=== PATIENT | male | born 1960 | race Hispanic/Latino ===

== ENCOUNTER 2024-06-18 12:34 | Emergency (ER) | payer SELFPAY ==
--- NOTE | 2024-06-18 13:16 | RAD REPORT ---
EXAMINATION: ONE VIEW CHEST XR CLINICAL INDICATION: dizziness TECHNIQUE: Frontal chest projection is submitted. Examination is limited by patient positioning and t echnique. COMPARISON: No prior exam. FINDINGS: The lungs are well inflated and clear. The heart is normal in size. No displaced fractures identified . IMPRESSION: No acute intrathoracic abnormalities.
--- NOTE | 2024-06-18 13:16 | RAD REPORT ---
EXAM: CT brain without contrast HISTORY: fall;Dizziness COMPARISON: None TECHNIQUE: Multiple contiguous axial images were obtained and a CT of the brain without contrast. Sag ittal and coronal reformats were performed. One or more of the following dose reduction techniques were used: Automated exposure control, adjust ment of the mA and/or kV according to patient size, and/or iterative reconstruction. FINDINGS: No evidence of hydrocephalus, intracranial hemorrhage, or extra-axial fluid collection. Mild brain atrophy with mild periventricular and deep white matter chronic microvascular ischemic ch anges present. No evidence of midline shift or areas of brain edema. The calvarium is intact. The visualized paranasal sinuses and mastoid air cells are essentially clear . IMPRESSION: No evidence of acute intracranial abnormality.
[2024-06-18 13:30] LABS: Absolute Basophils 0.1 K/uL (0-0.5); Absolute Eosinophils 0.1 K/uL (0-0.5); Absolute Lymphocytes (CBC) 1.4 K/uL (0.7-4.9); Absolute Monocytes 0.5 K/uL (0.1-1.3); Basophils % 1.3 % (0-1.3); Eosinophils % 1.7 % (0-4.4); Hematocrit 47.6 % (39.6-49.0); Hemoglobin 16.1 g/dL (13.6-17.9); Lymphocytes % 23.3 % (15.3-44.8); MCH 31.4 pg (27.0-35.0); MCHC 33.8 g/dL (32.0-36.0); MPV 8.1 fL (7.6-11.3); Monocytes % 7.9 % (3.3-12.3); Neutrophils % 65.8 % (41.7-73.7); Platelets 221 thou/uL (152-406); RBC Red Blood Cell Count 5.12 M/uL (4.33-5.43); Red Cell Distribution Width 13.2 % (12.1-15.2)
[2024-06-18 13:34] LABS: PT Prothrombin Time 11.3 SECONDS (9.4-12.5); PTT, Activated Partial Thromb 37.7 SECONDS (24.3-36.9); Protime INR 1.01
[2024-06-18 13:43] LABS: Specific Gravity 1.017 (1.005-1.030); Urine Bilirubin NEGATIVE (Negative); Urine Blood Negative (Negative); Urine Clarity Clear (Clear); Urine Color Light-Yellow (Yellow); Urine Glucose NEGATIVE (Negative); Urine Ketones NEGATIVE (Negative); Urine Microscopic Reflex YN NO UMIC; Urine Nitrite NEGATIVE (Negative); Urine Protein NEGATIVE (Negative); Urine Urobilinogen Normal (Normal)
[2024-06-18 13:47] LABS: ALT/SGPT 52 U/L (16-61); AST/SGOT 29 U/L (15-37); Albumin 3.9 g/dL (3.4-5.0); Albumin/Globulin Ratio 1.1 (1.1-1.8); Alkaline Phosphatase 76 U/L (45-117); Anion Gap 7.3 mEq/L (5.0-15.0); BUN Blood Urea Nitrogen 15 mg/dL (7-18); Bicarbonate 28 mEq/L (21-32); Bilirubin Total 0.5 mg/dL (0.2-1.0); Globulin 3.6 g/dL (2.3-3.5); Glomerular Filtration Rate 72 ml/min (=/>90); Glucose Level 100 mg/dL (74-106); Magnesium 2.3 mg/dL (1.6-2.4); Potassium 4.3 mEq/L (3.5-5.1); Protein, Total 7.5 g/dL (6.4-8.2); Sodium Level 140 mEq/L (136-145)
[2024-06-18 13:48] LABS: Bilirubin Direct < 0.2 mg/dL (0-0.2); Bilirubin Indirect, Calculated 0.3 mg/dL (0.2-0.8)
--- NOTE | 2024-06-18 15:01 | ER ---
Nurse's Notes [facility] Name: Fer Amezcua Age: 63 yrs Sex: Male : 1960 Arrival Date: 06/18/2024 Time: 12:34 Bed 9 Private MD: Diagnosis: Dizziness, headache resolved Presentation: 06/18 12:51 Chief complaint: Patient states: HEADACHE AND DIZZINESS X2 DAYS. PT ALSO REPORTS cm10 INTERMITTENT BLURRED VISION FOR 2 DAYS. PT STATES THAT HE HAD A FALL LAST WEEK AND "I FELL HARD, BUT I DIDN'T HIT MY HEAD.". Coronavirus screen: Client denies travel out of the [place] in the last 14 days. Ebola Screen: Patient denies travel to an Ebola-affected area in the 21 days before illness onset. Initial Sepsis Screen: Does the patient meet any 2 criteria? No. Patient's initial sepsis screen is negative. Does the patient have a suspected source of infection? No. Patient's initial sepsis screen is negative. Risk Assessment: Do you want to hurt yourself or someone else? Patient reports no desire to harm self or others. Onset of symptoms was June 16, 2024. 12:51 Method Of Arrival: Ambulatory cm10 12:51 Acuity: OMER 3 cm10 Triage Assessment: 12:54 Headache History: Denies prior headaches. General: Appears in no apparent distress. cm10 comfortable, Behavior is calm, cooperative. Pain: Complains of pain in head Pain does not radiate. Pain currently is 3 out of 10 on a pain scale. Quality of pain is described as DISCOMFORT Pain began 2-3 days ago. Also complains of DIZZINESS AND BLURRED VISION. Neuro: No deficits noted. Level of Consciousness is awake, alert, obeys commands, Oriented to person, place, time, situation, Appropriate for age Reports blurred vision dizziness, headache. Respiratory: No deficits noted. Airway is patent Respiratory effort is even, unlabored, Respiratory pattern is regular, symmetrical. Historical: - Allergies: 12:52 No Known Allergies; cm10 - Home Meds: 12:52 Simvastatin Oral [Active]; terazosin oral [Active]; cm10 - PMHx: 12:52 Hypercholesterolemia; Hypertensive disorder; cm10 - Immunization history:: Adult Immunizations up to date. - Infectious Disease History:: Denies. - Social history:: Smoking status: unknown. Screenin:01 [facility] ED Fall Risk Assessment (Adult) History of falling in the last 3 months, ss including since admission No falls in past 3 months (0 pts) Confusion or Disorientation No (0 pts) Intoxicated or Sedated No (0 pts) Impaired Gait No (0 pts) Mobility Assist Device Used No (0 pt) Altered Elimination No (0 pt) Score/Fall Risk Level 0 - 2 = Low Risk Oriented to surroundings, Maintained a safe environment. Abuse screen: Denies threats or abuse. Denies injuries from another. Nutritional screening: No deficits noted. Tuberculosis screening: Never had TB. Assessment: 15:01 General: Appears in no apparent distress. comfortable, Behavior is calm, cooperative. ss Pain: Denies pain. Neuro: Level of Consciousness is awake, alert, obeys commands, Oriented to person, place, time, situation. Respiratory: Airway is patent Respiratory effort is even, unlabored, Respiratory pattern is regular, symmetrical. GI: Patient currently denies diarrhea, nausea, vomiting. Derm: Skin is intact, is healthy with good turgor, Skin is pink, warm \\T\\ dry. normal. 15:17 Reassessment: Patient and/or family updated on plan of care and expected duration. Pain ss level reassessed. Patient is alert, oriented x 3, equal unlabored respirations, skin warm/dry/pink. Vital Signs: 12:51 BP 178 / 97; Pulse 60; Resp 15; Temp 97.5(TE); Pulse Ox 95% on R/A; Weight 81.65 kg; cm10 Height 5 ft. 7 in. ; Pain 3/10; 15:02 BP 157 / 88 Sitting; Pulse 49; ss 15:02 BP 176 / 92 Standing; Pulse 50; ss 12:51 Body Mass Index 28.19 (81.65 kg, 170.18 cm) cm10 12:51 Pain Scale: Adult cm10 ED Course: 12:38 Patient arrived in ED. mr 12:39 Michelle Balbuena MD is Attending Physician. sp3 12:52 Triage completed. cm10 12:55 Arm band placed on right wrist. Patient placed in waiting room. cm10 13:06 CT Head Brain wo Cont In Process Unspecified. EDMS 13:12 Chest Single View XRAY In Process Unspecified. EDMS 13:15 Missed attempt(s): 20 gauge in right antecubital area. Bleeding controlled, band aid bc6 applied, catheter tip intact. 13:23 Basic Metabolic Panel Sent. bc6 13:23 CBC with Diff Sent. bc6 13:23 Hepatic Function Sent. bc6 13:23 Magnesium Sent. bc6 13:23 Protime (+inr) Sent. bc6 13:23 Ptt, Activated Sent. bc6 13:23 Troponin High Sensitivity Sent. bc6 13:23 Missed attempt(s): 20 gauge in left antecubital area. Bleeding controlled, band aid bc6 applied, catheter tip intact. 13:24 Initial lab(s) drawn, by fl, sent to lab. bc6 13:35 Urinalysis w/ reflexes Sent. bc6 13:35 Urine collected: clean catch specimen. bc6 13:52 Desi Jaime, RN is Primary Nurse. ss 15:01 Patient has correct armband on for positive identification. Placed in gown. Bed in low ss position. 15:01 No provider procedures requiring assistance completed. ss 15:17 Patient did not have IV access during this emergency room visit. ss Administered Medications: No medications were administered Medication: 15:01 VIS not applicable for this client. ss Outcome: 15:00 Discharge ordered by . sp3 15:17 Discharged to home ambulatory, 15:17 Condition: good 15:17 Discharge instructions given to patient, family, Instructed on discharge instructions, follow up and referral plans. Demonstrated understanding of instructions, follow-up care, 15:18 Patient left the ED. ss Signatures: Dispatcher [employer] [facility] Hollie Cedillo, Reg Reg mr Desi Jaime, RN RN Michelle Balbuena MD MD sp3 Simran Gordon 6 Casie Haro, NATHANAEL RN cm10
--- NOTE | 2024-06-18 15:01 | EDPHYS ---
Physician Documentation [facility] Name: Fer Amezcua Age: 63 yrs Sex: Male : 1960 Arrival Date: 06/18/2024 Time: 12:34 Bed 9 Private MD: ED Physician Michelle Balbuena HPI: 06/18 14:57 This 63 yrs old Male presents to ER via Ambulatory with complaints of sp3 Headache, Dizziness. 14:57 63-year-old male with history of hypertension, hyperlipidemia presents to the ED with sp3 chief complaint now resolved headache and dizziness which she states has been going on for the last week. It is progressively gotten better and has no symptoms however he wanted to "get checked out". He denies any trauma though he states that the dizziness made him fall "hard" but caught himself with his hands. He denies any prodromal event before or any subsequent symptoms other than the headache. Denies ever having fever, facial pain, neck pain, focal neurological deficit, chest pain, shortness breath, abdominal pain, vomit, diarrhea, syncope, near syncope, rash, bleeding or any other signs or symptoms on ROS at this time.. Historical: - Allergies: 12:52 No Known Allergies; cm10 - Home Meds: 12:52 Simvastatin Oral [Active]; terazosin oral [Active]; cm10 - PMHx: 12:52 Hypercholesterolemia; Hypertensive disorder; cm10 - Immunization history:: Adult Immunizations up to date. - Infectious Disease History:: Denies. - Social history:: Smoking status: unknown. ROS: 14:58 Constitutional: Negative for fever, chills, and weight loss, Eyes: Negative for injury, sp3 pain, redness, and discharge, ENT: Negative for injury, pain, and discharge, Neck: Negative for injury, pain, and swelling, Cardiovascular: Negative for chest pain, palpitations, and edema, Respiratory: Negative for shortness of breath, cough, wheezing, and pleuritic chest pain, Abdomen/GI: Negative for abdominal pain, nausea, vomiting, diarrhea, and constipation, Back: Negative for injury and pain, MS/Extremity: Negative for injury and deformity, Skin: Negative for injury, rash, and discoloration, Psych: Negative for depression, anxiety, suicide ideation, homicidal ideation, and hallucinations, Allergy/Immunology: Negative for hives, rash, and allergies, Endocrine: Negative for neck swelling, polydipsia, polyuria, polyphagia, and marked weight changes, Hematologic/Lymphatic: Negative for swollen nodes, abnormal bleeding, and unusual bruising, 14:58 All other systems are negative, Exam: 14:58 Constitutional: This is a well developed, well nourished patient who is awake, alert, sp3 and in no acute distress. Head/Face: Normocephalic, atraumatic. Eyes: Pupils equal round and reactive to light, extra-ocular motions intact. Lids and lashes normal. Conjunctiva and sclera are non-icteric and not injected. Cornea within normal limits. Periorbital areas with no swelling, redness, or edema. ENT: Nares patent. No nasal discharge, no septal abnormalities noted. External auditory canals are clear. Oropharynx with no redness, swelling, or masses, exudates, or evidence of obstruction, uvula midline. Mucous membranes moist. Neck: Trachea midline, no thyromegaly or masses palpated, and no cervical lymphadenopathy. Supple, full range of motion without nuchal rigidity, or vertebral point tenderness. No Meningismus. Chest/axilla: Normal chest wall appearance and motion. Nontender with no deformity. No lesions are appreciated. Cardiovascular: Regular rate and rhythm with a normal S1 and S2. No gallops, murmurs, or rubs. Normal PMI, no JVD. No pulse deficits. Respiratory: Lungs have equal breath sounds bilaterally, clear to auscultation and percussion. No rales, rhonchi or wheezes noted. No increased work of breathing, no retractions or nasal flaring. Abdomen/GI: Soft, non-tender, with normal bowel sounds. No distension or tympany. No guarding or rebound. No evidence of tenderness throughout. Back: No spinal tenderness. No costovertebral tenderness. Full range of motion. Skin: Warm, dry with normal turgor. Normal color with no rashes, no lesions, and no evidence of cellulitis. MS/ Extremity: Pulses equal, no cyanosis. Neurovascular intact. Full, normal range of motion. Neuro: Awake and alert, GCS 15, oriented to person, place, time, and situation. Cranial nerves II-XII grossly intact. Motor strength 5/5 in all extremities. Sensory grossly intact. Cerebellar exam normal. Normal gait. Psych: Awake, alert, with orientation to person, place and time. Behavior, mood, and affect are within normal limits. 14:58 ECG was reviewed by the Attending Physician. EKG demonstrates sinus bradycardia at 45 bpm with normal intervals, normal QRS, normal axis nonspecific diffuse ST/T changes without evidence of acute ischemia. Vital Signs: 12:51 BP 178 / 97; Pulse 60; Resp 15; Temp 97.5(TE); Pulse Ox 95% on R/A; Weight 81.65 kg; cm10 Height 5 ft. 7 in. ; Pain 3/10; 15:02 BP 157 / 88 Sitting; Pulse 49; ss 15:02 BP 176 / 92 Standing; Pulse 50; ss 12:51 Body Mass Index 28.19 (81.65 kg, 170.18 cm) cm10 12:51 Pain Scale: Adult cm10 MDM: 12:56 Medical Screening Exam initiated sp3 14:58 Data reviewed: vital signs, nurses notes, lab test result(s), EKG, radiologic studies. sp3 ED course: 63-year-old male with PMH above now with resolved symptoms of headache and dizziness. EKG is bradycardic however does not demonstrate any significant abnormalities. Differential diagnosis includes electrolyte abnormality, vertigo, intracranial hemorrhage or mass or affect, ACS, among others. Remainder of workup include CT scan of the head which is negative/normal, general labs which are also normal. Troponin is negative. Patient is feeling back to baseline and states he is happy to go home breathing is normal. Of advised him if his symptoms return he needs to come back here immediately or follow-up with his PCP. At this time we will safely discharge patient home with general precautions of close follow-up.. 06/18 12:56 Order name: Basic Metabolic Panel; Complete Time: 14:28 sp3 06/18 12:56 Order name: CBC with Diff; Complete Time: 14:28 3 06/18 12:56 Order name: Hepatic Function; Complete Time: 14:28 sp3 06/18 12:56 Order name: Magnesium; Complete Time: 14:28 3 06/18 12:56 Order name: Protime (+inr); Complete Time: 14:28 3 06/18 12:56 Order name: Ptt, Activated; Complete Time: 14:28 3 06/18 12:56 Order name: Troponin High Sensitivity; Complete Time: 14:28 sp3 06/18 12:56 Order name: Urinalysis w/ reflexes; Complete Time: 14:28 sp3 06/18 12:56 Order name: CT Head Brain wo Cont; Complete Time: 13:24 sp3 06/18 12:56 Order name: Chest Single View XRAY; Complete Time: 13:24 sp3 06/18 12:56 Order name: EKG - Nurse/Tech; Complete Time: 13:23 sp3 06/18 12:56 Order name: IV Saline Lock; Complete Time: 14:57 sp3 06/18 12:56 Order name: Labs collected and sent; Complete Time: 13:23 sp3 06/18 12:56 Order name: NPO; Complete Time: 14:57 sp3 06/18 12:56 Order name: O2 Per Protocol; Complete Time: 14:57 sp3 06/18 12:56 Order name: O2 Sat Monitoring; Complete Time: 14:57 sp3 06/18 12:56 Order name: Orthostatics; Complete Time: 15:00 sp3 Administered Medications: No medications were administered Disposition Summary: 06/18/24 15:00 Discharge Ordered Notes: Location: Home sp3 Condition: Stable sp3 Diagnosis - Dizziness, headache resolved sp3 Followup: sp3 - With: Private Physician - When: Upon discharge from the Emergency Department - Reason: Continuance of care Discharge Instructions: - Discharge Summary Sheet sp3 - General Headache Without Cause sp3 Forms: - Medication Reconciliation Form sp3 - Antibiotic Education sp3 - Prescription Opioid Use sp3 - Patient Portal Instructions sp3 - Leadership Thank You Letter sp3 Signatures: Dispatcher [employer] EDMS Michelle Balbuena MD MD sp3 Casie Haro RN RN cm10 Corrections: (The following items were deleted from the chart) 12:57 12:57 BASIC METABOLIC PANEL+C.LAB.BRZ ordered. EDMS EDMS 12:57 12:57 CBC+H.LAB.BRZ ordered. EDMS EDMS 12:57 12:57 HEPATIC FUNCTION+C.LAB.BRZ ordered. EDMS EDMS 12:57 12:57 MAGNESIUM+C.LAB.BRZ ordered. EDMS EDMS 12:57 12:57 PROTIME (+INR)+COAG.LAB.BRZ ordered. EDMS EDMS 12:57 12:57 PTT, ACTIVATED+COAG.LAB.BRZ ordered. EDMS EDMS 12:57 12:57 Troponin High Sensitivity+C.LAB.BRZ ordered. EDMS EDMS 12:57 12:57 Urinalysis+U.LAB.BRZ ordered. EDMS EDMS 12:57 12:57 Head Brain Wo Cont+CT.RAD.BRZ ordered. EDMS EDMS 12:57 12:57 Chest Single View+RAD.RAD.BRZ ordered. EDMS EDMS 15:00 12:56 Cardiac monitoring ordered. sp3 ss
[2024-06-18 15:23] VITALS: TEMP 97.5; O2SAT 95
[2024-06-18 15:24] VITALS: BP 176/92
--- NOTE | 2024-06-21 15:57 | EKG ---
Test Date: 2024-06-18 Test Time: 13:28:10 Investment Fund Manager: BORIS MEASUREMENT RESULTS: Intervals: Rate: 45 WI: 136 QRSD: 106 QT: 468 QTc: 404 [place]: P: 37 WI: 136 QRS: -29 T: 21 INTERPRETIVE STATEMENTS: Marked sinus bradycardia Abnormal ECG No previous ECG available for comparison Electronically Signed On 06-21-24 15:51:37 ACCOUNT ASSOCIATE by Lionel Andre
== END 2024-06-18 15:18 | disposition home or self-care (01) ==
LOC: ER 12:34
DX: R42 Dizziness and giddiness (principal); I10 Essential (primary) hypertension
CPT/HCPCS: 36415; 70450; 71045; 80048; 80076; 81003; 83735; 84484; 85025; 85610; 85730; 93005; 99283